=== PATIENT | male | born 1955 | race Hispanic/Latino ===

== ENCOUNTER 2020-12-19 09:12 | Outpatient (CLI) | payer OTHER ==
--- NOTE | 2020-12-19 10:27 | XRay Report ---
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 There is also loss of joint space involving the right radiocarpal articulations. Severe degenera tive type osteoarthritic change involving both thumb carpometacarpal joints. Signer Name: Rei Guajardo MD Signed: 12/19/2020 10:23 AM Workstation Name: [id number]
== END 2020-12-19 09:13 | disposition home or self-care (01) ==
LOC: XRAY 09:12
PROVIDERS: ATTEND Internal Medicine
DX: M19.042 Primary osteoarthritis, left hand (principal); M19.041 Primary osteoarthritis, right hand; M79.89 Other specified soft tissue disorders